=== PATIENT | female | born 1995 | race Hispanic/Latino ===

== ENCOUNTER 2017-09-04 00:55 | Emergency (ER) | payer OTHER, SELFPAY ==
[2017-09-04] MEDS ORDERED: KETOROLAC 30 MG/ML INJ ONE (02:01)
[2017-09-04] MEDS ORDERED: CYCLOBENZAPRINE 10 MG TAB ONE (02:01)
[2017-09-04 02:31] LABS: Urine Blood NEGATIVE (NEG); Urine Glucose NEGATIVE (NEG); Urine Protein NEGATIVE (NEG); Urine Specific Gravity 1.015 (1.005-1.030); Urine pH 6.5 (5.0-7.0)
[2017-09-04 02:41] LABS: Urine Culture Reflex Order NOT NEEDED
[2017-09-04 02:42] LABS: Urine Bacteria 20-50 /HPF (<20); Urine RBC NONE SEEN /HPF (NONE SEEN)
[2017-09-04 02:43] LABS: Urine Mucus 1+ /HPF (NONE SEEN)
--- NOTE | 2017-09-04 02:44 | ER ---
Nurse's Notes [facility] Name: Lawanda Melton Age: 22 yrs Sex: Female : 1995 Arrival Date: 09/04/2017 Time: 00:55 Bed 7 Private MD: Diagnosis: Low back pain;Urinary tract infection, site not specified Presentation: 09/04 01:14 Presenting complaint: Patient states: she is having low back pain x 3 days but tonight bb thinks she made it worse playing softball pain is 10/10 feels like pressure in that area when not moving and feels a sharp pain with movement pt denies radiation of pain and denies burning with urination. 01:20 Transition of care: patient was not received from another setting of care. Onset of aa1 symptoms was September 02, 2017. Initial Sepsis Screen: Does the patient meet any 2 criteria? No. Patient's initial sepsis screen is negative. Does the patient have a suspected source of infection? No. Patient's initial sepsis screen is negative. Care prior to arrival: None. 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 - Social history:: Smoking status: Patient/guardian denies using tobacco, Patient/guardian denies using alcohol, street drugs. Screenin:57 Abuse screen: Denies threats or abuse. Denies injuries from another. Nutritional aa1 screening: No deficits noted. Tuberculosis screening: No symptoms or risk factors identified. Fall Risk None identified. Assessment: 01:57 General: Appears in no apparent distress. comfortable, Behavior is calm, cooperative, aa1 appropriate for age. Pain: Complains of pain in right low back Pain began 2-3 days ago. Neuro: Level of Consciousness is awake, alert, obeys commands, Oriented to person, place, time, situation, Moves all extremities. Full function Gait is steady. Respiratory: Airway is patent Respiratory effort is even, unlabored, Respiratory pattern is regular, symmetrical. GI: No signs and/or symptoms were reported involving the gastrointestinal system. : No signs and/or symptoms were reported regarding the genitourinary system. EENT: No signs and/or symptoms were reported regarding the EENT system. Derm: Skin is intact, is healthy with good turgor, Skin is pink, warm \T\ dry. Musculoskeletal: Circulation, motion, and sensation intact. Capillary refill < 3 seconds, Range of motion: intact in all extremities. 03:07 Reassessment: Patient appears in no apparent distress at this time. Patient is alert, aa1 oriented x 3, equal unlabored respirations, skin warm/dry/pink. Discussed d/c \T\ f/u instructions with pt; denies questions or concerns at this time Patient states feeling better. Vital Signs: 01:16 BP 119 / 82; Pulse 74; Resp 18 S; Temp 98.5(O); Pulse Ox 98% on R/A; Weight 65.77 kg bb (R); Height 5 ft. 4 in. (162.56 cm) (R); Pain 10/10; 01:57 BP 116 / 66; Pulse 82; Resp 16; Pulse Ox 100% on R/A; aa1 03:07 BP 103 / 69; Pulse 62; Resp 16; Pulse Ox 99% on R/A; Pain 3/10; aa1 01:16 Body Mass Index 24.89 (65.77 kg, 162.56 cm) bb ED Course: 00:55 Patient arrived in ED. ds1 01:05 [facility] snw 01:05 Damian Reynolds MD is Attending Physician. snw 01:16 Arm band placed on Patient placed in an exam room, on a stretcher, on pulse oximetry. bb 01:16 Pulse ox on. NIBP on. aa1 01:55 Urine collected: clean catch specimen, clear. aa1 01:57 Loli Lyles RN is Primary Nurse. aa1 01:57 Patient has correct armband on for positive identification. Bed in low position. Call aa1 light in reach. 03:07 No provider procedures requiring assistance completed. Patient did not have IV access aa1 during this emergency room visit. 03:10 Triage completed. aa1 Administered Medications: 02:06 Drug: TORadol 60 mg Route: IM; Site: right gluteus; aa1 03:07 Follow up: Response: No adverse reaction; Pain is decreased aa1 02:06 Drug: Flexeril 10 mg Route: PO; aa1 03:07 Follow up: Response: No adverse reaction; Pain is decreased aa1 03:07 Drug: Macrobid 100 mg Route: PO; aa1 03:07 Follow up: Response: Medication administered at discharge. aa1 Outcome: 02:44 Discharge ordered by . sharlene 03:07 Discharged to home ambulatory, with significant other. aa1 03: Condition: good 03:07 Discharge instructions given to patient, significant other, Instructed on discharge instructions, follow up and referral plans. medication usage, Demonstrated understanding of instructions, follow-up care, medications, Prescriptions given X 3. 03:10 Patient left the ED. aa1 Signatures: Loli Lyles, RN RN aa1 Sheri Winn, GOVERNMENT INSTRUCTOR-C GOVERNMENT INSTRUCTOR-Csnw Mariya Reilly ds1 Elena Zapata RN RN bb
--- NOTE | 2017-09-04 02:44 | EDPHYS ---
Physician Documentation [facility] Name: Lawanda Melton Age: 22 yrs Sex: Female : 1995 Arrival Date: 09/04/2017 Time: 00:55 Bed 7 Private MD: ED Physician Damian Reynolds HPI: 09/04 01:35 This 22 yrs old Female presents to ER via Unassigned with complaints of Back snw Pain. 01:35 The patient presents with pain that is acute. The symptoms are located in the low back. snw Onset: The symptoms/episode began/occurred suddenly, 3 day(s) ago, and became persistent. The pain does not radiate. Associated signs and symptoms: The patient has no apparent associated signs or symptoms. The problem was sustained after playing softball, pain on range of motion and now with lying still. Modifying factors: The patient symptoms are alleviated by nothing. Severity of symptoms: At their worst the symptoms were moderate. The patient has not experienced similar symptoms in the past. 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 - Social history:: Smoking status: Patient/guardian denies using tobacco, Patient/guardian denies using alcohol, street drugs. ROS: 01:35 Constitutional: Negative for fever, chills, and weight loss, Eyes: Negative for injury, snw pain, redness, and discharge, ENT: Negative for injury, pain, and discharge, Neck: Negative for injury, pain, and swelling, Cardiovascular: Negative for chest pain, palpitations, and edema, Respiratory: Negative for shortness of breath, cough, wheezing, and pleuritic chest pain, Abdomen/GI: Negative for abdominal pain, nausea, vomiting, diarrhea, and constipation, : Negative for injury, bleeding, discharge, and swelling, MS/Extremity: Negative for injury and deformity, Skin: Negative for injury, rash, and discoloration, Neuro: Negative for headache, weakness, numbness, tingling, and seizure. 01:35 Back: Positive for pain with movement, flank pain, on the right. Exam: 01:34 Constitutional: This is a well developed, well nourished patient who is awake, alert, snw and in no acute distress. Head/Face: Normocephalic, atraumatic. Eyes: Pupils equal round and reactive to light, extra-ocular motions intact. Lids and lashes normal. Conjunctiva and sclera are non-icteric and not injected. Cornea within normal limits. Periorbital areas with no swelling, redness, or edema. ENT: Nares patent. No nasal discharge, no septal abnormalities noted. Tympanic membranes are normal and external auditory canals are clear. Oropharynx with no redness, swelling, or masses, exudates, or evidence of obstruction, uvula midline. Mucous membranes moist. Neck: Trachea midline, no thyromegaly or masses palpated, and no cervical lymphadenopathy. Supple, full range of motion without nuchal rigidity, or vertebral point tenderness. No Meningismus. Chest/axilla: Normal chest wall appearance and motion. Nontender with no deformity. No lesions are appreciated. Cardiovascular: Regular rate and rhythm with a normal S1 and S2. No gallops, murmurs, or rubs. Normal PMI, no JVD. No pulse deficits. Respiratory: Lungs have equal breath sounds bilaterally, clear to auscultation and percussion. No rales, rhonchi or wheezes noted. No increased work of breathing, no retractions or nasal flaring. Abdomen/GI: Soft, non-tender, with normal bowel sounds. No distension or tympany. No guarding or rebound. No evidence of tenderness throughout. Skin: Warm, dry with normal turgor. Normal color with no rashes, no lesions, and no evidence of cellulitis. MS/ Extremity: Pulses equal, no cyanosis. Neurovascular intact. Full, normal range of motion. Neuro: Awake and alert, GCS 15, oriented to person, place, time, and situation. Cranial nerves II-XII grossly intact. Motor strength 5/5 in all extremities. Sensory grossly intact. Cerebellar exam normal. Normal gait. 01:34 Back: pain, that is moderate, of the right low back, CVA tenderness, that is mild. Vital Signs: 01:16 BP 119 / 82; Pulse 74; Resp 18 S; Temp 98.5(O); Pulse Ox 98% on R/A; Weight 65.77 kg bb (R); Height 5 ft. 4 in. (162.56 cm) (R); Pain 10/10; 01:57 BP 116 / 66; Pulse 82; Resp 16; Pulse Ox 100% on R/A; aa1 03:07 BP 103 / 69; Pulse 62; Resp 16; Pulse Ox 99% on R/A; Pain 3/10; aa1 01:16 Body Mass Index 24.89 (65.77 kg, 162.56 cm) MDM: 01:19 Patient medically screened. snw 02:45 Data reviewed: vital signs, nurses notes. Data interpreted: Pulse oximetry: on room air snw is 100 %. Interpretation: normal. Counseling: I had a detailed discussion with the patient and/or guardian regarding: the historical points, exam findings, and any diagnostic results supporting the discharge/admit diagnosis, lab results, the need for outpatient follow up, to return to the emergency department if symptoms worsen or persist or if there are any questions or concerns that arise at home. Special discussion: Based on the history and exam findings, there is no indication for further emergent testing or inpatient evaluation. I discussed with the patient/guardian the need to see the primary care provider for further evaluation of the symptoms. 09/04 01:06 Order name: Urine Culture [facility] 09/04 01:06 Order name: Urine Microscopic Only [facility] 09/04 01:06 Order name: Urine Culture [facility] 09/04 01:06 Order name: Urine Microscopic Only; Complete Time: 02:43 [facility] 09/04 01:58 Order name: Urine Dipstick--Ancillary (enter results); Complete Time: 02:33 cc 09/04 01:58 Order name: Urine --Ancillary (enter results); Complete Time: 02:33 cc 09/04 01:06 Order name: Urine Test (obtain specimen); Complete Time: 01:57 snw 09/04 01:06 Order name: Urine Dipstick-Ancillary (obtain specimen); Complete Time: 01:57 snw Administered Medications: 02:06 Drug: TORadol 60 mg Route: IM; Site: right gluteus; aa1 03:07 Follow up: Response: No adverse reaction; Pain is decreased aa1 02:06 Drug: Flexeril 10 mg Route: PO; aa1 03:07 Follow up: Response: No adverse reaction; Pain is decreased aa1 03:07 Drug: Macrobid 100 mg Route: PO; aa1 03:07 Follow up: Response: Medication administered at discharge. aa1 Disposition: 09/04/17 02:44 Discharged to Home. Impression: Low back pain, Urinary tract infection, site not specified. - Condition is Stable. - Discharge Instructions: Back Pain, Adult, Musculoskeletal Pain, Urinary Tract Infection, Back Injury Prevention, [id number], Back Exercises, [id number], Heat Therapy. - Prescriptions for Macrobid 100 mg Oral Capsule - take 1 capsule by ORAL route every 12 hours for 10 days; 20 capsule. Cyclobenzaprine 10 mg Oral Tablet - take 1 tablet by ORAL route every 8 hours As needed; 30 tablet. Diclofenac Sodium 75 mg Oral Tablet Sustained Release - take 1 tablet by ORAL route 2 times per day; 30 tablet. - School release form, Family Work Release, Medication Reconciliation Form, Thank You Letter, Antibiotic Education, Prescription Opioid Use form. - Follow up: Private Physician; When: 1 week; Reason: Recheck today's complaints, Continuance of care, Re-evaluation by your physician. Follow up: Emergency Department; When: As needed; Reason: Worsening of condition. Addendum: 09/08/2017 06:43 Co-signature as Attending Physician, Damian Reynolds MD Available for consultation at p s1 all times. . Signatures: Dispatcher [employer] Loli Ortega, KACI CLEMONS aa1 Sheri Winn, SWIMMING POOL SERVICER-C SWIMMING POOL SERVICER-Csnw Elena Zapata RN RN bb Singer, Phillip, MD MD ps1
[2017-09-04] MEDS ORDERED: NITROFURAN MACRO 100 MG CAP PO ONE (03:00)
== END 2017-09-04 03:10 | disposition home or self-care (01) ==
LOC: ER 00:55
DX: N39.0 Urinary tract infection, site not specified (principal)
CPT/HCPCS: 81003; 81015; 81025; 87086; 87088; 96372; 99284